=== PATIENT | male | born 1935 | race Caucasian/White ===

== ENCOUNTER 2022-01-05 19:36 | Observation (INO) | payer MEDICARE, OTHER ==
[2022-01-05] MEDS ORDERED: Calcium Carbonate 500 MG ChewTAB PO PRN (20:14)
[2022-01-05] MEDS ORDERED: Ondansetron PF 4 MG/2 ML Vial IVP PRN (20:14)
[2022-01-05] MEDS ORDERED: Senokot S 8.6-50 MG TAB PO PRN (20:14)
[2022-01-05] MEDS ORDERED: Acetaminophen 325 MG TAB PO PRN (20:14)
[2022-01-05] MEDS ORDERED: Guaifenesin DM 100-10/5 ML UDCUP PO PRN (20:14)
[2022-01-05] MEDS ORDERED: Acetaminophen 325 MG TAB PO SCH (20:30)
[2022-01-05 20:47] VITALS: BMI 25.2
[2022-01-05] MEDS ORDERED: Donepezil HCl 5 MG TAB PO SCH (21:00)
[2022-01-05] MEDS ORDERED: Atorvastatin Calcium 40 MG TAB PO SCH (21:00)
[2022-01-05] MEDS: Famotidine 20 MG TAB PO SCH (21:01)
[2022-01-06] MEDS ORDERED: Ezetimibe 10 MG TAB PO SCH (09:00)
[2022-01-06] MEDS ORDERED: EPA PO SCH (09:00)
[2022-01-06] MEDS ORDERED: AST PO SCH (09:00)
[2022-01-06] MEDS ORDERED: Fenofibrate Nanocrystallized 145 MG TAB PO SCH (09:00)
[2022-01-06] MEDS ORDERED: Aspirin 325 mg Enteric Coated Tablet PO SCH (09:00)
[2022-01-06] MEDS ORDERED: [UNRECOGNIZED DRUG - OTHER] PO SCH (09:00)
[2022-01-06] MEDS ORDERED: DHA PO SCH (09:00)
[2022-01-06] MEDS ORDERED: Lisinopril 5 MG TAB PO SCH (09:00)
[2022-01-06] MEDS ORDERED: PHOSPHO PO SCH (09:00)
[2022-01-06] MEDS ORDERED: KRILL PO SCH (09:00)
[2022-01-06] MEDS ORDERED: Enoxaparin Sodium 40 MG/0.4 ML SYRINGE SC SCH (09:00)
[2022-01-06] MEDS: Famotidine 20 MG TAB PO SCH (09:43)
[2022-01-06 15:57] VITALS: BP 117/56; TEMP 97.3
== END 2022-01-06 18:18 | disposition home or self-care (01) ==
LOC: CSHTELE 19:36 → INTOOBSV 19:36
PROVIDERS: ADMIT Hospitalist; ATTEND Hospitalist
DX: R07.9 Chest pain, unspecified (principal); R06.02 Shortness of breath; R00.1 Bradycardia, unspecified; I12.9 Hypertensive chronic kidney disease with stage 1 through stage 4 chronic kidney disease, or unspecified chronic kidney disease; N18.2 Chronic kidney disease, stage 2 (mild); E78.2 Mixed hyperlipidemia; I25.10 Atherosclerotic heart disease of native coronary artery without angina pectoris; K21.9 Gastro-esophageal reflux disease without esophagitis; G30.9 Alzheimer's disease, unspecified; F02.80 Dementia in other diseases classified elsewhere, unspecified severity, without behavioral disturbance, psychotic disturbance, mood disturbance, and anxiety; I44.0 Atrioventricular block, first degree; Z87.891 Personal history of nicotine dependence; Z79.82 Long term (current) use of aspirin; Z79.899 Other long term (current) drug therapy; Z95.1 Presence of aortocoronary bypass graft
CPT/HCPCS: 84439; 84443; 84484 ×2; 93005; 93306; 96372; G0378 ×2; 36415; 93010; J1650